=== PATIENT | male | born 1960 ===

== ENCOUNTER 2021-02-06 19:24 | Emergency (ER) | payer OTHER ==
[~2021-02-06] VITALS: Ht 175.2 cm; Wt 87.1 kg
[2021-02-06 19:58] LABS: MEAN CELL VOLUME 73.7 fl (80.0-94.0); MEAN CORPUSCULAR HGB 20.1 pg (27.0-31.0); MEAN CORPUSCULAR HGB CONC 27.3 g/dl (33.0-37.0); MEAN PLATELET VOLUME 9.1 fl (9.6-12.3); PLATELET COUNT AUTOMATED 180 10*3/uL (130-400); RED BLOOD COUNT 2.78 10*6/uL (4.50-5.90); RED CELL DISTRI WIDTH 24.8 % (0-14.5); WHITE BLOOD COUNT 4.6 10*3/uL (4.8-10.8)
[2021-02-06 20:01] LABS: HEMATOCRIT 20.5 % (42.0-52.0)
[2021-02-06 20:28] LABS: BASOPHILS 1 % (0-1); MICROCYTOSIS SLIGHT; PLATELET SUFFICIENCY LOW (NORMAL); TOTAL CELLS COUNTED 100 #CELLS
[2021-02-06 20:29] LABS: TARGET CELLS FEW
[2021-02-07 06:03] LABS: MEAN CELL VOLUME 74.5 fl (80.0-94.0); MEAN CORPUSCULAR HGB CONC 26.8 g/dl (33.0-37.0); MEAN PLATELET VOLUME 9.5 fl (9.6-12.3); PLATELET COUNT AUTOMATED 173 10*3/uL (130-400); RED BLOOD COUNT 2.75 10*6/uL (4.50-5.90); RED CELL DISTRI WIDTH 24.6 % (0-14.5); WHITE BLOOD COUNT 4.5 10*3/uL (4.8-10.8)
[2021-02-07 06:07] LABS: HEMATOCRIT 20.5 % (42.0-52.0)
[2021-02-07 06:44] LABS: BASOPHILS 2 % (0-1); MICROCYTOSIS SLIGHT; POLYCHROMASIA SLIGHT; TOTAL CELLS COUNTED 100 #CELLS
[2021-02-07 06:45] LABS: OVALOCYTES FEW; PLATELET SUFFICIENCY NORMAL (NORMAL); SCHISTOCYTES FEW; TARGET CELLS FEW
== END 2021-02-07 08:08 | disposition left against medical advice (07) ==
LOC: ED 19:24
PROVIDERS: Internal Medicine
DX: D50.0 Iron deficiency anemia secondary to blood loss (chronic) (principal); F10.920 Alcohol use, unspecified with intoxication, uncomplicated; Y90.8 Blood alcohol level of 240 mg/100 ml or more

== ENCOUNTER 2021-02-13 15:32 | Inpatient (IN) | payer OTHER ==
[~2021-02-13] VITALS: Ht 172.7 cm; Wt 74.8 kg
[2021-02-13] VITALS (11 sets, daily range): BP systolic 128–169; BP diastolic 76–100
[2021-02-13 16:28] LABS: HEMATOCRIT 21.4 % (42.0-52.0); MEAN CELL VOLUME 75.4 fl (80.0-94.0); MEAN CORPUSCULAR HGB 20.1 pg (27.0-31.0); MEAN CORPUSCULAR HGB CONC 26.6 g/dl (33.0-37.0); MEAN PLATELET VOLUME 9.3 fl (9.6-12.3); PLATELET COUNT AUTOMATED 240 10*3/uL (130-400); RED BLOOD COUNT 2.84 10*6/uL (4.50-5.90); RED CELL DISTRI WIDTH 24.8 % (0-14.5); WHITE BLOOD COUNT 4.4 10*3/uL (4.8-10.8)
[2021-02-13 16:42] LABS: ALBUMIN 3.4 gm/dl (3.1-4.5); ALKALINE PHOSPHATASE 93 U/L (45-117); BUN 6 mg/dl (7-24); CHLORIDE 106 mmol/L (98-107); CREATININE 0.56 mg/dL (0.70-1.30); IRON 9 ug/dL (65-175); LIPASE 258 U/L (73-393); POTASSIUM 3.7 mmol/L (3.5-5.1); SGOT/AST 119 IU/L (3-35); SGPT/ALT 59 U/L (12-78); SODIUM 139 mmol/L (136-145); TOTAL IRON BINDING CAPACITY 450 ug/dl (250-450); TOTAL PROTEIN 7.2 gm/dL (6.4-8.2)
[2021-02-13 16:43] LABS: TROPONIN I < 0.015 ng/ml (<0.045)
[2021-02-13 16:48] LABS: FERRITIN 14.5 ng/mL (22.0-322.0)
[2021-02-13 16:55] LABS: ATYPICAL LYMPHS 1 % (0-0); BASOPHILS 1 % (0-1); PLATELET SUFFICIENCY NORMAL (NORMAL); TOTAL CELLS COUNTED 100 #CELLS
[2021-02-13 16:56] LABS: MICROCYTOSIS MODERATE
[2021-02-13] MEDS ORDERED: IBUPROFEN600 MG PO (17:48)
[2021-02-13] MEDS ORDERED: PROTONIX40 MG PO (17:48)
[2021-02-13] MEDS ORDERED: LISINOPRIL10 M1 PO (17:48)
[2021-02-13] MEDS ORDERED: CLARITIN10 MG PO (17:51)
[2021-02-13 23:39] LABS: BASO # 0.1 10*3/uL (0.0-0.1); BASO % 1.1 % (0.0-1.0); EOS # 0.1 10*3/uL (0.0-0.4); EOS % 2.3 % (1.0-4.0); HEMATOCRIT 29.1 % (42.0-52.0); LYMPH # 0.9 10*3/uL (1.3-4.4); LYMPH % 13.8 % (27.0-41.0); MEAN CELL VOLUME 77.8 fl (80.0-94.0); MEAN CORPUSCULAR HGB CONC 29.6 g/dl (33.0-37.0); MEAN PLATELET VOLUME 9.3 fl (9.6-12.3); MONO # 0.6 10*3/uL (0.1-1.0); MONO % 10.1 % (3.0-9.0); NEUT # 4.4 10*3/uL (2.3-7.9); NEUT % 72.2 % (47.0-73.0); NUCLEATED RED BLOOD CELL 0.3 % (0.0-0.0); PLATELET COUNT AUTOMATED 235 10*3/uL (130-400); RED BLOOD COUNT 3.74 10*6/uL (4.50-5.90); RED CELL DISTRI WIDTH 22.3 % (0-14.5); WHITE BLOOD COUNT 6.2 10*3/uL (4.8-10.8)
[2021-02-14 00:45] VITALS: BP 183/94
[2021-02-14 05:46] LABS: ALBUMIN 3.3 gm/dl (3.1-4.5); ALKALINE PHOSPHATASE 100 U/L (45-117); BUN 8 mg/dl (7-24); CHLORIDE 105 mmol/L (98-107); CREATININE 0.57 mg/dL (0.70-1.30); FREE T4 1.19 ng/dl (0.76-1.46); POTASSIUM 3.7 mmol/L (3.5-5.1); SGOT/AST 110 IU/L (3-35); SGPT/ALT 55 U/L (12-78); SODIUM 136 mmol/L (136-145); TOTAL PROTEIN 7.4 gm/dL (6.4-8.2)
[2021-02-14 06:29] LABS: BASO # 0.1 10*3/uL (0.0-0.1); BASO % 1.1 % (0.0-1.0); EOS # 0.1 10*3/uL (0.0-0.4); EOS % 1.5 % (1.0-4.0); HEMATOCRIT 29.7 % (42.0-52.0); LYMPH # 0.8 10*3/uL (1.3-4.4); LYMPH % 10.7 % (27.0-41.0); MEAN CELL VOLUME 78.4 fl (80.0-94.0); MEAN CORPUSCULAR HGB 23.5 pg (27.0-31.0); MEAN PLATELET VOLUME 9.4 fl (9.6-12.3); MONO # 0.7 10*3/uL (0.1-1.0); MONO % 9.7 % (3.0-9.0); NEUT # 5.7 10*3/uL (2.3-7.9); NEUT % 76.5 % (47.0-73.0); PLATELET COUNT AUTOMATED 225 10*3/uL (130-400); RED BLOOD COUNT 3.79 10*6/uL (4.50-5.90); RED CELL DISTRI WIDTH 21.8 % (0-14.5); WHITE BLOOD COUNT 7.5 10*3/uL (4.8-10.8)
[2021-02-14 08:00] VITALS: BP 161/96
[2021-02-14 11:45] VITALS: BP 150/84
[2021-02-14 12:00] VITALS: BP 150/84
[2021-02-14 16:00] VITALS: BP 160/92
[2021-02-14 20:00] VITALS: BP 160/88
[2021-02-15] VITALS: BP 160/89
[2021-02-15 06:19] LABS: CHLORIDE 97 mmol/L (98-107); POTASSIUM 3.5 mmol/L (3.5-5.1); SODIUM 132 mmol/L (136-145)
[2021-02-15 06:24] LABS: BUN 5 mg/dl (7-24); CREATININE 0.61 mg/dL (0.70-1.30)
[2021-02-15 06:28] LABS: BASO # 0.1 10*3/uL (0.0-0.1); EOS # 0.2 10*3/uL (0.0-0.4); HEMATOCRIT 29.9 % (42.0-52.0); LYMPH % 13.1 % (27.0-41.0); MEAN CELL VOLUME 77.9 fl (80.0-94.0); MEAN CORPUSCULAR HGB 23.2 pg (27.0-31.0); MEAN CORPUSCULAR HGB CONC 29.8 g/dl (33.0-37.0); MONO % 12.1 % (3.0-9.0); NEUT # 5.6 10*3/uL (2.3-7.9); NEUT % 71.4 % (47.0-73.0); NUCLEATED RED BLOOD CELL 0.3 % (0.0-0.0); PLATELET COUNT AUTOMATED 239 10*3/uL (130-400); RED BLOOD COUNT 3.84 10*6/uL (4.50-5.90); RED CELL DISTRI WIDTH 22.4 % (0-14.5); WHITE BLOOD COUNT 7.8 10*3/uL (4.8-10.8)
[2021-02-15 08:00] VITALS: BP 134/96
[2021-02-15 12:00] VITALS: BP 148/90
[2021-02-15 16:00] VITALS: BP 116/75
[2021-02-15 20:00] VITALS: BP 126/72
[2021-02-16] VITALS: BP 115/68
[2021-02-16 06:21] LABS: BASO # 0.1 10*3/uL (0.0-0.1); BASO % 0.6 % (0.0-1.0); EOS # 0.1 10*3/uL (0.0-0.4); EOS % 1.3 % (1.0-4.0); HEMATOCRIT 31.8 % (42.0-52.0); LYMPH # 1.2 10*3/uL (1.3-4.4); LYMPH % 13.6 % (27.0-41.0); MEAN CELL VOLUME 79.3 fl (80.0-94.0); MEAN CORPUSCULAR HGB 23.4 pg (27.0-31.0); MEAN CORPUSCULAR HGB CONC 29.6 g/dl (33.0-37.0); MEAN PLATELET VOLUME 9.2 fl (9.6-12.3); MONO # 1.2 10*3/uL (0.1-1.0); MONO % 12.8 % (3.0-9.0); NEUT # 6.5 10*3/uL (2.3-7.9); NEUT % 71.1 % (47.0-73.0); PLATELET COUNT AUTOMATED 269 10*3/uL (130-400); RED BLOOD COUNT 4.01 10*6/uL (4.50-5.90); RED CELL DISTRI WIDTH 22.9 % (0-14.5); WHITE BLOOD COUNT 9.1 10*3/uL (4.8-10.8)
[2021-02-16 06:59] LABS: CHLORIDE 98 mmol/L (98-107); POTASSIUM 3.1 mmol/L (3.5-5.1); SODIUM 132 mmol/L (136-145)
[2021-02-16 07:29] LABS: CREATININE 0.82 mg/dL (0.70-1.30)
[2021-02-16 07:50] LABS: BUN 15 mg/dl (7-24)
[2021-02-16 08:00] VITALS: BP 148/88
[2021-02-16 12:00] VITALS: BP 140/67
[2021-02-16 16:00] VITALS: BP 126/69
[2021-02-16 20:00] VITALS: BP 129/80
[2021-02-17] VITALS (8 sets, daily range): BP systolic 99–154; BP diastolic 55–85
[2021-02-17 00:57] LABS: BILIRUBIN 1+ (Negative); BLOOD Negative (Negative); CLARITY Clear (Clear); COLOR Dark Yellow (Yellow); GLUCOSE Negative (Negative); KETONE 1+ (Negative); LEUKO ESTERASE Trace (Negative); NITRITE Negative (Negative); PH 6.5 (4.5-8.0); SPECIFIC GRAVITY 1.025 (1.001-1.030)
[2021-02-17 01:14] LABS: MUCOUS TRACE
[2021-02-17 01:15] LABS: BACTERIA TRACE
[2021-02-17 06:05] LABS: BUN 20 mg/dl (7-24); CHLORIDE 104 mmol/L (98-107); CREATININE 0.72 mg/dL (0.70-1.30); POTASSIUM 3.6 mmol/L (3.5-5.1); SODIUM 135 mmol/L (136-145)
[2021-02-17 06:17] LABS: BASO # 0.1 10*3/uL (0.0-0.1); EOS # 0.3 10*3/uL (0.0-0.4); EOS % 3.8 % (1.0-4.0); LYMPH # 1.5 10*3/uL (1.3-4.4); LYMPH % 19.5 % (27.0-41.0); MEAN CELL VOLUME 80.9 fl (80.0-94.0); MEAN CORPUSCULAR HGB 23.5 pg (27.0-31.0); MEAN PLATELET VOLUME 10.1 fl (9.6-12.3); MONO # 1.2 10*3/uL (0.1-1.0); MONO % 15.1 % (3.0-9.0); NEUT # 4.6 10*3/uL (2.3-7.9); NEUT % 60.1 % (47.0-73.0); PLATELET COUNT AUTOMATED 300 10*3/uL (130-400); RED BLOOD COUNT 3.83 10*6/uL (4.50-5.90); WHITE BLOOD COUNT 7.7 10*3/uL (4.8-10.8)
[2021-02-18] VITALS: BP 130/66
[2021-02-18 06:17] LABS: BASO # 0.1 10*3/uL (0.0-0.1); BASO % 1.4 % (0.0-1.0); EOS # 0.3 10*3/uL (0.0-0.4); EOS % 3.4 % (1.0-4.0); HEMATOCRIT 30.6 % (42.0-52.0); LYMPH # 1.4 10*3/uL (1.3-4.4); LYMPH % 17.1 % (27.0-41.0); MEAN CORPUSCULAR HGB 23.3 pg (27.0-31.0); MEAN CORPUSCULAR HGB CONC 28.8 g/dl (33.0-37.0); MEAN PLATELET VOLUME 9.6 fl (9.6-12.3); MONO # 1.3 10*3/uL (0.1-1.0); MONO % 16.1 % (3.0-9.0); NEUT # 4.9 10*3/uL (2.3-7.9); NEUT % 61.6 % (47.0-73.0); PLATELET COUNT AUTOMATED 318 10*3/uL (130-400); RED BLOOD COUNT 3.78 10*6/uL (4.50-5.90); RED CELL DISTRI WIDTH 24.8 % (0-14.5); WHITE BLOOD COUNT 7.9 10*3/uL (4.8-10.8)
[2021-02-18 06:25] LABS: BUN 16 mg/dl (7-24); CHLORIDE 107 mmol/L (98-107); CREATININE 0.66 mg/dL (0.70-1.30); POTASSIUM 3.6 mmol/L (3.5-5.1); SODIUM 136 mmol/L (136-145)
[2021-02-18 08:00] VITALS: BP 162/87
[2021-02-18] MEDS ORDERED: PROTONIX40 MG PO (10:45)
[2021-02-18] MEDS ORDERED: Carafate1 GM PO (10:45)
[2021-02-18] MEDS ORDERED: VITAMIN D350 MC2 PO (10:47)
[2021-02-18 12:00] VITALS: BP 154/71
== END 2021-02-18 13:39 | disposition home or self-care (01) | DRG 241 ==
LOC: ED 15:32 → EDHOLD 16:45 → 4E 16:45
PROVIDERS: Emergency Medicine; Internal Medicine; Social Worker Clinical; ADMIT Family Medicine; ATTEND Family Medicine
PROC: 30233N1 Transfusion of Nonautologous Red Blood Cells into Peripheral Vein, Percutaneous Approach (ICD-10-PCS; 2021-02-13)
PROC: 0DB78ZX Excision of Stomach, Pylorus, Via Natural or Artificial Opening Endoscopic, Diagnostic (ICD-10-PCS; principal; 2021-02-17)
DX: K29.21 Alcoholic gastritis with bleeding (principal); D50.0 Iron deficiency anemia secondary to blood loss (chronic); E87.2 Acidosis; E44.1 Mild protein-calorie malnutrition; R00.0 Tachycardia, unspecified; R73.9 Hyperglycemia, unspecified; E83.42 Hypomagnesemia; R06.00 Dyspnea, unspecified; I10 Essential (primary) hypertension; E78.2 Mixed hyperlipidemia; K21.9 Gastro-esophageal reflux disease without esophagitis; F10.139 Alcohol abuse with withdrawal, unspecified; I65.23 Occlusion and stenosis of bilateral carotid arteries; Y90.8 Blood alcohol level of 240 mg/100 ml or more; M19.90 Unspecified osteoarthritis, unspecified site; Z96.649 Presence of unspecified artificial hip joint; Z82.49 Family history of ischemic heart disease and other diseases of the circulatory system; Z80.3 Family history of malignant neoplasm of breast; Z79.899 Other long term (current) drug therapy; Z68.25 Body mass index [BMI] 25.0-25.9, adult

== ENCOUNTER 2022-11-06 23:23 | Emergency (ER) | payer OTHER ==
[~2022-11-06] VITALS: Wt 84.1 kg
[~2022-11-06 23:23] MED LIST: CLARITIN10 MG PO; CYMBALTA20 M1 PO; Carafate1 GM PO; IBUPROFEN600 MG PO; LISINOPRIL10 M1 PO; PROTONIX40 MG PO; SEROQUEL100 MG PO; VITAMIN D350 MC2 PO
[2022-11-07] MEDS ORDERED: CEPHALEXIN500 M1 PO (01:19)
[2022-11-07] MEDS ORDERED: PREDNISONE20 M1 PO (01:19)
== END 2022-11-07 01:48 | disposition home or self-care (01) ==
LOC: ED 23:23
DX: S01.112A Laceration without foreign body of left eyelid and periocular area, initial encounter (principal); S09.90XA Unspecified injury of head, initial encounter; Z98.890 Other specified postprocedural states; W19.XXXA Unspecified fall, initial encounter; Y93.89 Activity, other specified; Y92.89 Other specified places as the place of occurrence of the external cause; Y99.8 Other external cause status